=== PATIENT | male | born 1960 | race African-American/Black ===

== ENCOUNTER 2020-03-13 17:56 | Inpatient (IN) ==
[2020-03-13] MEDS ORDERED: ACETAMINOPHEN 500 MG TABLET PO STA (18:23)
[2020-03-13 18:32] LABS: Basophils # 0.1 10*3/uL (0.0-0.2); Basophils % 0.4 % (0.0-0.8); Eosinophils % 0.3 % (0.00-10.9); Hematocrit 35.3 VOL% (42.0-52.0); Hemoglobin 12.2 GM/DL (14.0-18.0); Immature Granulocytes % 1.1 %; Immature Granulocytes Absolute 0.15 #; Lymphocytes # 2.1 10*3/uL (1.4-4.0); Lymphocytes % 15.2 % (21.2-54.2); Mean Corpuscular HGB Conc 34.6 GM/DL (32-36); Mean Corpuscular Volume 80.6 FL (87-102); Mean Platelet Volume 9.3 FL (9.6-12.0); Platelet Count 248 T/CUMM (130-400); Red Blood Count 4.38 MC/CUMM (3.8-5.5); Red Cell Distribution Width 14.8 % (9.3-17.3); White Blood Count 13.7 T/CUMM (4-12)
[2020-03-13 18:59] LABS: Bilirubin,Total 0.7 MG/DL (0.2-1.0); Calcium 8.8 MG/DL (8.5-10.1); Osmolality,Calculated 271.8 MOS/KG (273-304); Potassium 3.3 MMOL/L (3.5-5.1); Total Protein 7.3 G/DL (6.4-8.3); Uric Acid 8.5 MG/DL (3.5-7.2)
[2020-03-13 19:07] LABS: Hypochromasia 1+; Microcytosis 1+; Platelet Estimate Normal
[2020-03-13] MEDS ORDERED: methylPREDNISolone SOD SUC 125 MG/2 ML VIAL IV STA (19:37)
[2020-03-13] MEDS ORDERED: FUROSEMIDE 40 MG/4 ML VIAL IV STA (20:34)
[2020-03-13] MEDS ORDERED: cefTRIAXone 2,000 MG in SODIUM CHLORIDE 0.9% 100 ML IV STA (21:30)
[2020-03-13] MEDS ORDERED: VANCOMYCIN INJ 1,000 MG in SODIUM CHLORIDE 0.9% 250 ML IV STA (21:31)
[2020-03-13] MEDS ORDERED: VANCOMYCIN INJ 2,000 MG in SODIUM CHLORIDE 0.9% 500 ML IV STA (21:35)
[2020-03-13] MEDS ORDERED: ONDANSETRON 4 MG/2 ML VIAL IV PRN (21:44)
[2020-03-13 23:13] LABS: Bilirubin,Urine Negative (Negative); Blood, Urine Negative (Negative); Glucose,Urine (UA) Negative (Negative); Hyaline Casts,Urine 1 /LPF (0-3); Ketones,Urine Negative (Negative); Mucus,Urine Occasional /LPF (Occasional); Nitrite,Urine Negative (Negative); Protein,Urine Negative; RBC,Urine <1 /HPF (0-4); Urine Appearance CLEAR (Clear); Urine Color Straw (Yellow); Urine Specific Gravity 1.006 (1.001-1.035); Urine Urobilinogen < 2.0 EU/DL (0.2-1.0); WBC,Urine <1 /HPF (0-6)
[2020-03-14 06:25] LABS: Basophils % 0.2 % (0.0-0.8); Hemoglobin 12.3 GM/DL (14.0-18.0); Immature Granulocytes % 0.7 %; Immature Granulocytes Absolute 0.08 #; Lymphocytes % 8.8 % (21.2-54.2); Mean Corpuscular HGB Conc 33.2 GM/DL (32-36); Mean Corpuscular Volume 82.6 FL (87-102); Mean Platelet Volume 10.1 FL (9.6-12.0); Monocytes % 4.1 % (1.7-12.7); Neutrophils % 86.2 % (38.7-73.9); Platelet Count 221 T/CUMM (130-400); Red Blood Count 4.48 MC/CUMM (3.8-5.5); White Blood Count 11.6 T/CUMM (4-12)
[2020-03-14 06:54] LABS: Alanine Aminotransferase 17 U/L (16-61); Albumin 2.5 G/DL (3.4-5.0); Alkaline Phosphatase 80 U/L (45-117); Aspartate Amino Transferase 12 U/L (0-37); Blood Urea Nitrogen < 1 MG/DL (7-18); Calcium 8.4 MG/DL (8.5-10.1); Carbon Dioxide 19 MMOL/L (21-32); Estimated Glom Filtration Rate 168 ML/MIN; Glucose 135 MG/DL (74-106); Osmolality,Calculated 274.9 MOS/KG (273-304); Potassium 3.6 MMOL/L (3.5-5.1); Sodium 139 MMOL/L (136-145); Total Protein 7.3 G/DL (6.4-8.3)
[2020-03-14] MEDS ORDERED: INDOMETHACIN 50 MG CAPSULE PO SCH (08:00)
[2020-03-14] MEDS: VANCOMYCIN INJ 2,000 MG in SODIUM CHLORIDE 0.9% 500 ML IV SCH ×2 (11:44→22:54)
[2020-03-14] MEDS: PANTOPRAZOLE 40 MG TABLET PO SCH (11:45)
[2020-03-14] MEDS: LOSARTAN 50 MG TABLET PO SCH (11:45)
[2020-03-14] MEDS: METOPROLOL SUCCINATE XL 50 MG TABLET PO SCH (11:45)
[2020-03-14] MEDS: INDOMETHACIN 25 MG CAPSULE PO SCH ×3 (11:50→16:58)
[2020-03-14] MEDS ORDERED: cefTRIAXone 2,000 MG in SYRINGE 1 EACH IV SCH (21:00)
[2020-03-14] MEDS: DOCUSATE SODIUM 100 MG CAPSULE PO PRN (21:25)
[2020-03-15 05:45] LABS: Basophils % 0.2 % (0.0-0.8); Eosinophils % 0.1 % (0.00-10.9); Hematocrit 33.4 VOL% (42.0-52.0); Hemoglobin 11.4 GM/DL (14.0-18.0); Immature Granulocytes % 0.5 %; Immature Granulocytes Absolute 0.08 #; Lymphocytes # 2.3 10*3/uL (1.4-4.0); Lymphocytes % 13.2 % (21.2-54.2); Mean Corpuscular HGB Conc 34.1 GM/DL (32-36); Mean Corpuscular Volume 80.9 FL (87-102); Mean Platelet Volume 9.8 FL (9.6-12.0); Monocytes % 7.2 % (1.7-12.7); Neutrophils % 78.8 % (38.7-73.9); Platelet Count 242 T/CUMM (130-400); Red Blood Count 4.13 MC/CUMM (3.8-5.5); Red Cell Distribution Width 14.5 % (9.3-17.3)
[2020-03-15 06:10] LABS: Calcium 8.4 MG/DL (8.5-10.1); Osmolality,Calculated 292.7 MOS/KG (273-304); Potassium 3.6 MMOL/L (3.5-5.1)
[2020-03-15] MEDS: DOCUSATE SODIUM 100 MG CAPSULE PO PRN (07:37)
[2020-03-15] MEDS: METOPROLOL SUCCINATE XL 50 MG TABLET PO SCH (09:43)
[2020-03-15] MEDS: PANTOPRAZOLE 40 MG TABLET PO SCH (09:43)
[2020-03-15] MEDS: LOSARTAN 50 MG TABLET PO SCH (09:43)
[2020-03-15] MEDS: INDOMETHACIN 25 MG CAPSULE PO SCH ×2 (09:44→12:30)
[2020-03-15 11:28] VITALS: BP 128/76
[2020-03-16] MEDS ORDERED: PNEUMOCOCCAL VACCINE (23 VALENT) 0.5 ML VIAL IM ONE (09:00)
== END 2020-03-15 13:17 | disposition home or self-care (01) | DRG 554 ==
LOC: EDBD → EDUNIT# → N.ED 17:56 → N.EDINP 21:44 → N.3E 03-14 00:06
PROVIDERS: ADMIT Internal Medicine; ATTEND Internal Medicine

== ENCOUNTER 2020-04-10 10:13 | Inpatient (IN) ==
[2020-04-10 11:26] LABS: Basophils # 0.1 10*3/uL (0.0-0.2); Basophils % 0.2 % (0.0-0.8); Eosinophils # 0.1 10*3/uL (0.0-0.87); Eosinophils % 0.3 % (0.00-10.9); Hematocrit 34.8 VOL% (42.0-52.0); Immature Granulocytes % 1.1 %; Immature Granulocytes Absolute 0.24 #; Lymphocytes # 1.4 10*3/uL (1.4-4.0); Lymphocytes % 6.7 % (21.2-54.2); Mean Corpuscular HGB Conc 34.5 GM/DL (32-36); Mean Corpuscular Volume 79.3 FL (87-102); Mean Platelet Volume 10.1 FL (9.6-12.0); Neutrophils % 82.7 % (38.7-73.9); Platelet Count 210 T/CUMM (130-400); Red Blood Count 4.39 MC/CUMM (3.8-5.5); Red Cell Distribution Width 14.3 % (9.3-17.3); White Blood Count 21.5 T/CUMM (4-12)
[2020-04-10 11:51] LABS: Albumin 2.7 G/DL (3.4-5.0); Band Neutrophils 37 % (0-10); Bilirubin,Total 0.7 MG/DL (0.2-1.0); Calcium 8.5 MG/DL (8.5-10.1); Eosinophils 1 % (0-10); Lymphocytes 10 % (20-55); Metamyelocytes 1 %; Osmolality,Calculated 277.7 MOS/KG (273-304); Platelet Estimate Normal; Segmented Neutrophils 42 % (50-85); Total Cells Counted 100; Total Protein 7.4 G/DL (6.4-8.3)
[2020-04-10 11:52] LABS: Anisocytosis Slight
[2020-04-10] MEDS ORDERED: ONDANSETRON 4 MG/2 ML VIAL IV STA (12:00)
[2020-04-10] MEDS ORDERED: MORPHINE 4 MG/1 ML VIAL IV STA (12:00)
[2020-04-10] MEDS ORDERED: POTASSIUM CHLORIDE 20 MEQ TABLET PO STA (12:01)
[2020-04-10] MEDS ORDERED: SUCCINYLCHOLINE 200 MG/10 ML VIAL ONE (14:09)
[2020-04-10] MEDS ORDERED: ONDANSETRON 4 MG/2 ML VIAL ONE (14:10)
[2020-04-10] MEDS ORDERED: propofoL 200 MG/20 ML VIAL IV ONE (14:10)
[2020-04-10] MEDS ORDERED: LIDOCAINE 2% 5 ML VIAL ONE (14:10)
[2020-04-10] MEDS ORDERED: fentaNYL 100 MCG/2 ML VIAL ONE (14:10)
[2020-04-10] MEDS ORDERED: BUPIVACAINE MPF 0.25% 30 ML VIAL ONE (14:28)
[2020-04-10] MEDS ORDERED: LIDOCAINE 1%/EPI INJ 20 ML VIAL ONE (14:29)
[2020-04-10] MEDS ORDERED: LACTATED RINGERS 1,000 ML IV ONE (14:54)
[2020-04-10] MEDS ORDERED: ETOMIDATE 40 MG/20 ML VIAL IV ONE (14:57)
[2020-04-10] MEDS ORDERED: SEVOFLURANE 1 UNIT/15 MINUTE INH ONE ×2 (14:57→15:59)
[2020-04-10] MEDS ORDERED: ONDANSETRON 4 MG/2 ML VIAL IV PRN ×2 (15:25→16:01)
[2020-04-10] MEDS ORDERED: GLUCAGON 1 MG VIAL IM PRN (15:25)
[2020-04-10] MEDS ORDERED: DEXTROSE 50% 25 GM/50 ML VIAL IV PRN (15:25)
[2020-04-10] MEDS ORDERED: PHENYLEPHRINE 1 MG/10 ML SYRINGE IV ONE (16:00)
[2020-04-10] MEDS ORDERED: MEPERIDINE 25 MG/1 ML VIAL ONE (16:03)
[2020-04-10] MEDS: MEPERIDINE 25 MG/1 ML VIAL IV PRN ×2 (16:05→16:16)
[2020-04-10] MEDS: ENOXAPARIN 40 MG/0.4 ML SYRINGE SUBCUT SCH (16:59)
[2020-04-10] MEDS: MORPHINE 4 MG/1 ML VIAL IV PRN ×2 (17:27→22:57)
[2020-04-10] MEDS ORDERED: GABAPENTIN 400 MG CAPSULE PO PRN (17:36)
[2020-04-10] MEDS ORDERED: SODIUM CHLORIDE 0.9% 1,000 ML IV SCH (18:00)
[2020-04-10] MEDS: COLCHICINE 0.6 MG CAPSULE PO SCH (20:42)
[2020-04-10] MEDS: allopurinoL 300 MG TABLET PO SCH (20:42)
[2020-04-10] MEDS ORDERED: POTASSIUM CHLORIDE 20 MEQ TABLET PO SCH (21:00)
[2020-04-10] MEDS ORDERED: FUROSEMIDE 40 MG TABLET PO SCH (21:00)
[2020-04-11] MEDS: MORPHINE 4 MG/1 ML VIAL IV PRN ×3 (05:29→15:03)
[2020-04-11 05:36] LABS: Basophils # 0.1 10*3/uL (0.0-0.2); Basophils % 0.4 % (0.0-0.8); Eosinophils # 0.2 10*3/uL (0.0-0.87); Eosinophils % 1.1 % (0.00-10.9); Hematocrit 32.1 VOL% (42.0-52.0); Hemoglobin 10.9 GM/DL (14.0-18.0); Immature Granulocytes % 3.2 %; Immature Granulocytes Absolute 0.53 #; Lymphocytes # 2.2 10*3/uL (1.4-4.0); Mean Corpuscular Volume 80.5 FL (87-102); Mean Platelet Volume 10.3 FL (9.6-12.0); Monocytes % 11.5 % (1.7-12.7); Neutrophils % 70.8 % (38.7-73.9); Platelet Count 207 T/CUMM (130-400); Red Blood Count 3.99 MC/CUMM (3.8-5.5); Red Cell Distribution Width 14.1 % (9.3-17.3); White Blood Count 16.7 T/CUMM (4-12)
[2020-04-11 05:50] LABS: Calcium 8.1 MG/DL (8.5-10.1); Osmolality,Calculated 274.7 MOS/KG (273-304)
[2020-04-11 08:28] LABS: Band Neutrophils 18 % (0-10); Hypochromasia 2+; Lymphocytes 16 % (20-55); Metamyelocytes 2 %; Platelet Estimate Normal; Polychromasia Slight; Segmented Neutrophils 60 % (50-85); Total Cells Counted 100
[2020-04-11] MEDS: LOSARTAN 50 MG TABLET PO SCH (09:21)
[2020-04-11] MEDS: METOPROLOL SUCCINATE XL 50 MG TABLET PO SCH (09:21)
[2020-04-11] MEDS: COLCHICINE 0.6 MG CAPSULE PO SCH ×2 (09:21→21:03)
[2020-04-11] MEDS ORDERED: POTASSIUM CHLORIDE 20 MEQ TABLET PO ONE (12:04)
[2020-04-11] MEDS: ENOXAPARIN 40 MG/0.4 ML SYRINGE SUBCUT SCH (15:03)
[2020-04-11] MEDS ORDERED: HYDROmorphone 2 MG/1 ML VIAL IV PRN (17:09)
[2020-04-11] MEDS: KETOROLAC 15 MG/1 ML VIAL IV SCH ×2 (17:33→23:58)
[2020-04-11] MEDS: allopurinoL 300 MG TABLET PO SCH (21:04)
[2020-04-12] MEDS: KETOROLAC 15 MG/1 ML VIAL IV SCH ×3 (06:06→16:52)
[2020-04-12] MEDS: LOSARTAN 50 MG TABLET PO SCH (08:52)
[2020-04-12] MEDS: METOPROLOL SUCCINATE XL 50 MG TABLET PO SCH (08:52)
[2020-04-12] MEDS: COLCHICINE 0.6 MG CAPSULE PO SCH ×2 (08:52→21:22)
[2020-04-12 09:04] LABS: Calcium 8.4 MG/DL (8.5-10.1); Osmolality,Calculated 277.4 MOS/KG (273-304)
[2020-04-12 10:29] LABS: Basophils # 0.1 10*3/uL (0.0-0.2); Basophils % 0.4 % (0.0-0.8); Eosinophils # 0.3 10*3/uL (0.0-0.87); Eosinophils % 2.7 % (0.00-10.9); Hematocrit 31.4 VOL% (42.0-52.0); Hemoglobin 10.7 GM/DL (14.0-18.0); Immature Granulocytes % 4.5 %; Immature Granulocytes Absolute 0.58 #; Lymphocytes # 1.9 10*3/uL (1.4-4.0); Mean Corpuscular HGB Conc 34.1 GM/DL (32-36); Mean Corpuscular Volume 81.3 FL (87-102); Mean Platelet Volume 10.2 FL (9.6-12.0); Monocytes % 11.8 % (1.7-12.7); Neutrophils % 65.6 % (38.7-73.9); Platelet Count 239 T/CUMM (130-400); Red Blood Count 3.86 MC/CUMM (3.8-5.5); Red Cell Distribution Width 14.9 % (9.3-17.3); White Blood Count 12.8 T/CUMM (4-12)
[2020-04-12 10:41] LABS: Anisocytosis 1+; Band Neutrophils 23 % (0-10); Eosinophils 2 % (0-10); Lymphocytes 16 % (20-55); Metamyelocytes 2 %; Myelocytes 1 %; Platelet Estimate Normal; Segmented Neutrophils 50 % (50-85); Smudge Cells Few; Target Cells Few; Total Cells Counted 100
[2020-04-12 10:42] LABS: Atypical Lymphocytes Few
[2020-04-12] MEDS ORDERED: PIPERACILLIN/TAZOBACTAM 4,500 MG in SODIUM CHLORIDE 0.9% 100 ML IV SCH (11:00)
[2020-04-12] MEDS: PIPERACILLIN/TAZOBACTAM 3,375 MG in SODIUM CHLORIDE 0.9% 100 ML IV SCH ×2 (11:41→19:01)
[2020-04-12] MEDS ORDERED: LIDOCAINE 2% 5 ML VIAL ONE (14:19)
[2020-04-12] MEDS ORDERED: propofoL 200 MG/20 ML VIAL IV ONE (14:19)
[2020-04-12] MEDS ORDERED: MIDAZOLAM 2 MG/2 ML VIAL ONE (14:20)
[2020-04-12] MEDS ORDERED: fentaNYL 100 MCG/2 ML VIAL ONE (14:20)
[2020-04-12] MEDS ORDERED: ETOMIDATE 40 MG/20 ML VIAL IV ONE (14:27)
[2020-04-12] MEDS ORDERED: SUCCINYLCHOLINE 200 MG/10 ML VIAL ONE (14:27)
[2020-04-12] MEDS ORDERED: LIDOCAINE 1%/EPI INJ 20 ML VIAL ONE (15:12)
[2020-04-12] MEDS ORDERED: BUPIVACAINE MPF 0.25% 30 ML VIAL ONE (15:12)
[2020-04-12] MEDS ORDERED: ROCURONIUM 50 MG/5 ML VIAL IV ONE (15:23)
[2020-04-12] MEDS ORDERED: DESFLURANE 1 UNIT/15 MINUTE INH ONE (15:24)
[2020-04-12] MEDS ORDERED: ONDANSETRON 4 MG/2 ML VIAL ONE (15:24)
[2020-04-12] MEDS ORDERED: SUGAMMADEX 200 MG/2 ML VIAL IV ONE (15:37)
[2020-04-12] MEDS ORDERED: diphenhydrAMINE 50 MG/1 ML VIAL IV PRN (15:58)
[2020-04-12] MEDS ORDERED: PROMETHAZINE INJ 25 MG in SODIUM CHLORIDE 0.9% 50 ML IV PRN (15:58)
[2020-04-12] MEDS ORDERED: ONDANSETRON 4 MG/2 ML VIAL IV PRN (15:58)
[2020-04-12] MEDS ORDERED: MEPERIDINE 25 MG/1 ML VIAL ONE (15:59)
[2020-04-12] MEDS: MEPERIDINE 25 MG/1 ML VIAL IV PRN ×2 (16:00→16:10)
[2020-04-12] MEDS ORDERED: PROMETHAZINE 25 MG/1 ML VIAL ONE (16:04)
[2020-04-12] MEDS: ENOXAPARIN 40 MG/0.4 ML SYRINGE SUBCUT SCH (18:20)
[2020-04-12] MEDS: allopurinoL 300 MG TABLET PO SCH (21:22)
[2020-04-13] MEDS: KETOROLAC 15 MG/1 ML VIAL IV SCH ×5 (00:45→23:28)
[2020-04-13] MEDS: PIPERACILLIN/TAZOBACTAM 3,375 MG in SODIUM CHLORIDE 0.9% 100 ML IV SCH ×3 (03:28→18:28)
[2020-04-13] MEDS: COLCHICINE 0.6 MG CAPSULE PO SCH ×2 (08:31→20:58)
[2020-04-13] MEDS: METOPROLOL SUCCINATE XL 50 MG TABLET PO SCH (08:31)
[2020-04-13 09:08] LABS: Basophils # 0.1 10*3/uL (0.0-0.2); Basophils % 0.6 % (0.0-0.8); Eosinophils # 0.4 10*3/uL (0.0-0.87); Eosinophils % 4.3 % (0.00-10.9); Hematocrit 30.3 VOL% (42.0-52.0); Hemoglobin 10.4 GM/DL (14.0-18.0); Immature Granulocytes % 2.9 %; Immature Granulocytes Absolute 0.25 #; Lymphocytes % 22.8 % (21.2-54.2); Mean Corpuscular HGB Conc 34.3 GM/DL (32-36); Mean Corpuscular Volume 80.2 FL (87-102); Mean Platelet Volume 9.4 FL (9.6-12.0); Monocytes % 10.5 % (1.7-12.7); Neutrophils % 58.9 % (38.7-73.9); Platelet Count 244 T/CUMM (130-400); Red Blood Count 3.78 MC/CUMM (3.8-5.5); Red Cell Distribution Width 14.7 % (9.3-17.3); White Blood Count 8.6 T/CUMM (4-12)
[2020-04-13] MEDS ORDERED: BISACODYL 5 MG TABLET PO PRN (09:48)
[2020-04-13 10:43] LABS: Atypical Lymphocytes Few; Band Neutrophils 4 % (0-10); Eosinophils 3 % (0-10); Hypochromasia 2+; Lymphocytes 17 % (20-55); Microcytosis 1+; Segmented Neutrophils 53 % (50-85); Total Cells Counted 100
[2020-04-13 10:44] LABS: Platelet Estimate Normal; Polychromasia Slight
[2020-04-13] MEDS: ENOXAPARIN 40 MG/0.4 ML SYRINGE SUBCUT SCH (14:27)
[2020-04-13] MEDS: allopurinoL 300 MG TABLET PO SCH (20:58)
[2020-04-14] MEDS: PIPERACILLIN/TAZOBACTAM 3,375 MG in SODIUM CHLORIDE 0.9% 100 ML IV SCH ×3 (03:40→18:07)
[2020-04-14 05:50] LABS: Basophils # 0.1 10*3/uL (0.0-0.2); Basophils % 0.6 % (0.0-0.8); Eosinophils # 0.3 10*3/uL (0.0-0.87); Eosinophils % 3.3 % (0.00-10.9); Hemoglobin 10.6 GM/DL (14.0-18.0); Immature Granulocytes % 4.3 %; Immature Granulocytes Absolute 0.43 #; Lymphocytes # 2.1 10*3/uL (1.4-4.0); Lymphocytes % 21.4 % (21.2-54.2); Mean Corpuscular HGB Conc 34.2 GM/DL (32-36); Mean Corpuscular Volume 80.5 FL (87-102); Mean Platelet Volume 9.6 FL (9.6-12.0); Monocytes % 10.1 % (1.7-12.7); Neutrophils % 60.3 % (38.7-73.9); Platelet Count 290 T/CUMM (130-400); Red Blood Count 3.85 MC/CUMM (3.8-5.5); Red Cell Distribution Width 14.8 % (9.3-17.3)
[2020-04-14 06:20] LABS: Calcium 8.4 MG/DL (8.5-10.1); Osmolality,Calculated 284.8 MOS/KG (273-304)
[2020-04-14 06:30] LABS: Band Neutrophils 1 % (0-10); Eosinophils 4 % (0-10); Lymphocytes 20 % (20-55); Segmented Neutrophils 69 % (50-85); Total Cells Counted 100
[2020-04-14 06:31] LABS: Hypochromasia 2+; Microcytosis 1+; Target Cells Few
[2020-04-14] MEDS: KETOROLAC 15 MG/1 ML VIAL IV SCH ×4 (06:31→22:54)
[2020-04-14 06:32] LABS: Platelet Estimate Normal
[2020-04-14] MEDS: COLCHICINE 0.6 MG CAPSULE PO SCH ×2 (09:13→20:20)
[2020-04-14] MEDS: METOPROLOL SUCCINATE XL 50 MG TABLET PO SCH (09:13)
[2020-04-14] MEDS: ENOXAPARIN 40 MG/0.4 ML SYRINGE SUBCUT SCH (15:18)
[2020-04-14] MEDS: allopurinoL 300 MG TABLET PO SCH (20:20)
[2020-04-15] MEDS: PIPERACILLIN/TAZOBACTAM 3,375 MG in SODIUM CHLORIDE 0.9% 100 ML IV SCH ×3 (02:19→18:13)
[2020-04-15] MEDS: KETOROLAC 15 MG/1 ML VIAL IV SCH ×4 (04:34→22:44)
[2020-04-15 05:45] LABS: Basophils % 0.6 % (0.0-0.8); Eosinophils # 0.3 10*3/uL (0.0-0.87); Eosinophils % 4.1 % (0.00-10.9); Hematocrit 30.8 VOL% (42.0-52.0); Hemoglobin 10.2 GM/DL (14.0-18.0); Immature Granulocytes % 4.2 %; Immature Granulocytes Absolute 0.27 #; Lymphocytes # 2.3 10*3/uL (1.4-4.0); Lymphocytes % 35.6 % (21.2-54.2); Mean Corpuscular HGB Conc 33.1 GM/DL (32-36); Mean Corpuscular Volume 82.4 FL (87-102); Mean Platelet Volume 9.7 FL (9.6-12.0); Monocytes % 10.7 % (1.7-12.7); Neutrophils % 44.8 % (38.7-73.9); Platelet Count 296 T/CUMM (130-400); Red Blood Count 3.74 MC/CUMM (3.8-5.5); Red Cell Distribution Width 14.8 % (9.3-17.3); White Blood Count 6.4 T/CUMM (4-12)
[2020-04-15] MEDS: LOSARTAN 50 MG TABLET PO SCH (09:59)
[2020-04-15] MEDS: METOPROLOL SUCCINATE XL 50 MG TABLET PO SCH (09:59)
[2020-04-15] MEDS: COLCHICINE 0.6 MG CAPSULE PO SCH ×2 (09:59→22:03)
[2020-04-15] MEDS: ENOXAPARIN 40 MG/0.4 ML SYRINGE SUBCUT SCH (14:36)
[2020-04-15] MEDS: HYDROmorphone 2 MG/1 ML VIAL IV PRN (14:44)
[2020-04-15] MEDS: allopurinoL 300 MG TABLET PO SCH (22:03)
[2020-04-16] MEDS: PIPERACILLIN/TAZOBACTAM 3,375 MG in SODIUM CHLORIDE 0.9% 100 ML IV SCH (03:46)
[2020-04-16] MEDS: KETOROLAC 15 MG/1 ML VIAL IV SCH ×2 (06:00→10:48)
[2020-04-16 06:05] LABS: Basophils % 0.6 % (0.0-0.8); Eosinophils # 0.3 10*3/uL (0.0-0.87); Hematocrit 31.5 VOL% (42.0-52.0); Hemoglobin 10.4 GM/DL (14.0-18.0); Immature Granulocytes % 2.6 %; Immature Granulocytes Absolute 0.19 #; Lymphocytes # 2.4 10*3/uL (1.4-4.0); Lymphocytes % 33.5 % (21.2-54.2); Mean Platelet Volume 9.5 FL (9.6-12.0); Monocytes % 8.7 % (1.7-12.7); NRBC # 0.02 10*3/uL; Neutrophils % 50.6 % (38.7-73.9); Platelet Count 314 T/CUMM (130-400); Red Blood Count 3.84 MC/CUMM (3.8-5.5); Red Cell Distribution Width 14.9 % (9.3-17.3); White Blood Count 7.3 T/CUMM (4-12)
[2020-04-16 06:30] LABS: Calcium 8.4 MG/DL (8.5-10.1); Osmolality,Calculated 283.8 MOS/KG (273-304)
[2020-04-16 06:53] LABS: Band Neutrophils 3 % (0-10); Eosinophils 2 % (0-10); Lymphocytes 33 % (20-55); Segmented Neutrophils 54 % (50-85); Total Cells Counted 100
[2020-04-16 06:54] LABS: Atypical Lymphocytes Few; Hypochromasia 1+; Microcytosis 1+; Platelet Estimate Normal; Target Cells Few
[2020-04-16] MEDS: COLCHICINE 0.6 MG CAPSULE PO SCH (10:47)
[2020-04-16] MEDS: LOSARTAN 50 MG TABLET PO SCH (10:47)
[2020-04-16] MEDS: METOPROLOL SUCCINATE XL 50 MG TABLET PO SCH (10:48)
[2020-04-16] MEDS: HYDROmorphone 2 MG/1 ML VIAL IV PRN (10:57)
[2020-04-16] MEDS ORDERED: AMOXICILLIN/CLAV 875 MG TABLET PO SCH (11:00)
[2020-04-16 12:37] VITALS: BP 151/79
[2020-04-16] MEDS: ENOXAPARIN 40 MG/0.4 ML SYRINGE SUBCUT SCH (14:57)
== END 2020-04-16 15:20 | disposition home health service (06) | DRG 358 ==
LOC: EDUNIT# → EDBD → N.ED 10:13 → N.3E 14:57
PROVIDERS: ADMIT Surgery; ATTEND Surgery